=== PATIENT | female | born 1980 | race Caucasian/White ===

== ENCOUNTER 2023-02-16 01:26 | Emergency (ER) | payer MEDICAID ==
[~2023-02-16] VITALS: Ht 165.1 cm; Wt 81.6 kg
[2023-02-16 01:29] VITALS: BP_SYST 159; PULSE 107; RESP 20; TEMP 97.9; O2SAT 97
[2023-02-16] MEDS ORDERED: HYDROcodone/ACETAMIN 5-325 MG TAB (NORCO/ VICODIN) PO ONE (01:30)
[2023-02-16] MEDS ORDERED: IBUPROFEN 600 MG TABLET PO ONE (01:30)
[2023-02-16 02:14] LABS: SERUM HCG (QUALITATIVE) NEGATIVE (NEGATIVE)
[2023-02-16 02:16] LABS: BASOPHILS % (AUTO) 0.3 % (0.0-2.0); EOSINOPHILS # (AUTO) 0.1 K/uL (0.0-0.4); EOSINOPHILS % (AUTO) 1.2 % (0.0-4.0); HEMATOCRIT 40.4 % (36-48); HEMOGLOBIN 13.8 g/dL (12.0-16.0); LYMPHOCYTES # (AUTO) 3.1 K/uL (1.0-5.5); LYMPHOCYTES % (AUTO) 27.3 % (20.5-51.5); MEAN CORPUSCULAR HEMOGLOBIN 29 pg (27-31); MEAN CORPUSCULAR HGB CONC 34 % (32-36); MEAN CORPUSCULAR VOLUME 86 fL (79.0-98.0); MONOCYTES # (AUTO) 0.9 K/uL (0.0-1.0); MONOCYTES % (AUTO) 8.2 % (1.7-9.3); NEUTROPHILS # (AUTO) 7.1 K/uL (1.8-7.7); PLATELET COUNT (AUTO) 245 K/uL (130-430); PROTHROMBIN TIME 10.2 SECS (9.5-12.5); RED BLOOD CELL COUNT(AUTO) 4.69 MIL/uL (4.2-6.2); RED CELL DISTRIBUTION WIDTH 13.7 % (9.0-15.0); WHITE BLOOD COUNT (AUTO) 11.2 K/uL (4.8-10.8)
[2023-02-16 02:17] LABS: ALBUMIN 3.1 g/dL (3.4-4.8); CALCIUM 8.7 mg/dL (8.4-11.0); CREATININE 0.94 mg/dL (0.55-1.30); TOTAL BILIRUBIN 0.4 mg/dL (0.0-1.0); TOTAL PROTEIN, SERUM 6.5 g/dL (6.4-8.3)
[2023-02-16 02:25] LABS: POTASSIUM 2.4 mmol/L (3.5-5.1)
[2023-02-16] MEDS ORDERED: NACL 0.9% 1,000 ML IV ONE (02:30)
[2023-02-16] MEDS ORDERED: POTASSIUM CHLORIDE 20 MEQ TAB.PRT.SR PO ONE ×2 (02:30→05:00)
[2023-02-16] MEDS ORDERED: KCL 20 mEq in 100 mL (PREMIX) 100 ML IV ONE (02:30)
[2023-02-16] MEDS ORDERED: IBUP-1969 PO (05:06)
[2023-02-16 06:01] VITALS: BP_SYST 153; PULSE 87; RESP 20; TEMP 98; O2SAT 97
== END 2023-02-16 05:59 | disposition home or self-care (01) ==
LOC: SED 01:26
DX: T74.11XA Adult physical abuse, confirmed, initial encounter (principal); E87.6 Hypokalemia; M54.50 Low back pain, unspecified; M25.552 Pain in left hip; M25.562 Pain in left knee; I10 Essential (primary) hypertension; Z79.899 Other long term (current) drug therapy; Y03.0XXA Assault by being hit or run over by motor vehicle, initial encounter; Y93.89 Activity, other specified; Y92.89 Other specified places as the place of occurrence of the external cause; Y99.8 Other external cause status
CPT/HCPCS: 99291; 96365; 96366; 80053; 84703; 83735; 85025; 85610; 36415; 72100; 73502; 73564; 72170; J3480